=== PATIENT | male | born 1965 | race Two or more races ===

== ENCOUNTER 2019-05-10 05:15 | Day surgery (SDC) | payer OTHER ==
[~2019-05-10 05:15] MED LIST: AVAPRO300 MG PO; LIPIT PO; ZOLOFT25 MG PO
== END 2019-05-10 09:50 | disposition home or self-care (01) ==
LOC: CIR.AMB 05:15 → ADM 10:45 → CIR.AMB 10:45
DX: M65.841 Other synovitis and tenosynovitis, right hand (principal)

== ENCOUNTER 2019-06-07 05:20 | Day surgery (SDC) | payer OTHER ==
[~2019-06-07 05:20] MED LIST changes: +CARDIZEM120 MG PO; +LIPITOR20 MG PO; +REMERON15 MG
== END 2019-06-07 13:05 | disposition home or self-care (01) ==
LOC: CIR.AMB 05:20 → ADM 08:15 → CIR.AMB 09:00
DX: M65.842 Other synovitis and tenosynovitis, left hand (principal)